=== PATIENT | female | born 1960 | race Caucasian/White ===

== ENCOUNTER 2016-12-08 05:08 | Inpatient (IN) | payer BC ==
[2016-11-11 15:01] VITALS: BMI 55.0
[2016-11-11 15:12] LABS: BASO % 0.4 %; BASO ABS # 0.03 K/uL (0-0.2); COMPLETE YES; IG% 0.2 %; LYMPH % 26.6 %; LYMPH ABS # 2.28 K/uL (1.2-3.4); MEAN CELL VOLUME 74.9 fL (80-100); MEAN CORPUSCULAR HEMOGLOBIN 24.9 pg (25-34); MEAN CORPUSCULAR HGB CONC 33.3 g/dl (32-36); MEAN PLATELET VOLUME 10.5 fL (7.4-10.4); MONO % 6.1 %; NEUT % 64.7 %; PLATELET COUNT 234 K/uL (130-400); RED BLOOD COUNT 5.34 M/uL (4.2-5.4); WHITE BLOOD COUNT 8.57 K/uL (4.8-10.8)
[2016-11-11 15:18] LABS: URINE APPEARANCE CLEAR (CLEAR); URINE BILIRUBIN NEG (NEG); URINE COLOR YELLOW; URINE EPITHELIAL CELL AUTO >30 /lpf (0-5); URINE NITRITE NEG (NEG); URINE SPECIFIC GRAVITY 1.015 (1.000-1.030); UROBILINOGEN NEG (NEG)
--- NOTE | 2016-11-11 15:20 | PAT Medication Instructions ---
Service Date Nov 11, 2016. Current Home Medication List Cholecalciferol (Vitamin D), 1,000 INTER.UNIT PO QAM Multiple Vitamins W/ Minerals (Hair/Skin/Nails), 1 TAB PO QAM Multivitamin (Multivitamin), 1 TAB PO QAM Simvastatin (Zocor), 10 MG PO QPM Medication Instructions For Your Scheduled Surgery - Hold the following medications the morning of surgery: Cholecalciferol (Vitamin D), 1,000 INTER.UNIT PO QAM Multiple Vitamins W/ Minerals (Hair/Skin/Nails), 1 TAB PO QAM Multivitamin (Multivitamin), 1 TAB PO QAM - Take the following medications as scheduled the night before surgery: Simvastatin (Zocor), 10 MG PO QPM Nothing to eat or drink after midnight If you have any questions please call us at [phone] or [phone] or [phone]
[2016-11-11 15:25] LABS: MANUAL MICROSCOPIC REQUIRED? NO; REVIEW REQ? NO
[2016-11-11 15:30] LABS: BUN/CREATININE RATIO 17.9 (10-20); CALCIUM 9.1 mg/dl (8.5-10.1); CREATININE 0.84 mg/dl (0.60-1.20); POTASSIUM 4.3 mmol/L (3.5-5.1)
[2016-11-11 15:36] LABS: PROTHROMBIN TIME (PATIENT) 10.5 SECONDS (9.0-12.0)
[2016-11-12 06:27] LABS: ESTIMATED AVERAGE GLUCOSE 123 mg/dl; HA1C FLAG Normal (Normal)
[~2016-12-08] VITALS: Ht 154.9 cm; Wt 131.5 kg
[2016-12-08] VITALS (10 sets, daily range): BP systolic 97–136; BP diastolic 62–84; PULSE 60–78; TEMP 36.8–37.3; O2SAT 93–100; Ht 154.9 cm; Wt 131.5 kg
[~2016-12-08 05:08] MED LIST: CHOL100010 PO; MULT-506 PO; MULT-580 PO; SIMV10TA2 PO
[2016-12-08] MEDS ORDERED: GABAPENTIN 300 MG CAP PO SCH (06:00)
[2016-12-08] MEDS ORDERED: METOCLOPRAMIDE HCL 10 MG TAB PO SCH (06:00)
[2016-12-08] MEDS ORDERED: ACETAMINOPHEN 500 MG TAB PO SCH (06:00)
[2016-12-08] MEDS ORDERED: LACTATED RINGER'S 1000ML IV SCH ×2 (06:00)
[2016-12-08] MEDS ORDERED: OXYCODONE HCL 10 MG TABCR (OXYCONTIN) PO SCH (06:00)
[2016-12-08] MEDS ORDERED: CeleBREX 200 MG CAP PO SCH (06:00)
[2016-12-08] MEDS ORDERED: LACTATED RINGER'S 500 ML IV SCH (06:00)
[2016-12-08] MEDS ORDERED: FAMOTIDINE 20 MG TAB PO SCH (06:00)
[2016-12-08] MEDS ORDERED: ROPIVACAINE 5MG/ML 30 ML 150 MG, BUPIVACAINE/EPINEPHR 0.5% MPF 30 ML, KETOROLAC TROMETH... INFIL SCH ×7 (06:00)
[2016-12-08] MEDS ORDERED: CEFAZOLIN 3000 MG/65 ML D5W 65 ML IV SCH (06:00)
[2016-12-08] MEDS ORDERED: DEXAMETHASONE 4 MG TAB PO SCH (06:00)
[2016-12-08] MEDS ORDERED: BUPIVACAINE 0.5 % 5 MG/1 ML PF 10ML VIAL ONE (06:27)
[2016-12-08] MEDS ORDERED: BUPIVACAINE/EPINEPHRINE 0.25% 1:200,000 30 ML VIAL ONE (06:27)
[2016-12-08] MEDS: TRANEXAMIC ACID INJ 1,000 MG in SODIUM CHLORIDE 0.9% 100ML 100 ML IV SCH ×2 (06:30→07:05)
[2016-12-08] MEDS ORDERED: POVIDONE-IODINE OP SOLN 30 ML BTL ONE (06:49)
[2016-12-08] MEDS ORDERED: BACITRACIN 50000 UNIT VIAL ONE (06:49)
[2016-12-08] MEDS ORDERED: ORTHO JOINT ANESTHETIC ONE (06:49)
[2016-12-08] MEDS ORDERED: MIDAZOLAM HCL 1 MG/ML 2ML VIAL ONE (06:54)
--- NOTE | 2016-12-08 07:01 | History and Physical ---
History & Physical Date of Service Dec 08, 2016. History & Physical History & Physical PROCEDURE: Right knee replacement. HISTORY OF PRESENT ILLNESS: The patient is a pleasant 55-year-old female who presents for preoperative evaluation prior to her Right knee replacement. She states she has been having pain in this knee for many years now, which has gradually worsened. It has now gotten to the point it is affecting her daily activities including walking, standing and going up and down steps. She takes oral anti-inflammatories as well as extra strength Tylenol with no relief. She has tried previous injections as well without any significant relief. She has had previous knee arthroscopy dating back I think 3-4 years ago. At this point in time has failed conservative measures and would like to proceed with a right knee replacement.she had her left knee replaced in 2016 and is doing well. PAST MEDICAL HISTORY: 1. High cholesterol. 2. Sleep apnea. 3. GERD. 4. Obesity. ALLERGIES: No known drug allergies. CURRENT MEDICATIONS: 1. Simvastatin 10 mg daily. 2. Diclofenac 75 mg b.i.d. 3. Wellbutrin 100 mg daily. PAST SURGICAL HISTORY: 1. Previous knee arthroscopies on both knees. 2. Bilateral carpal tunnel release. 3. Left Total Knee Replacement FAMILY HISTORY: Noncontributory. SOCIAL HISTORY: The patient quit smoking in 1981. Denies any alcohol consumption. REVIEW OF SYSTEMS: Otherwise negative. Please see HPI for pertinent positives. PHYSICAL EXAMINATION: GENERAL: Lizabeth 65-year-old female in no acute distress, alert and oriented x3. VITAL SIGNS: She is 5 feet 1, weighs 285 pounds. HEAD, EYES, EARS, NOSE, AND THROAT: Normocephalic, atraumatic. CARDIAC: Regular rate and rhythm. Resting pulse 70 beats per minute. LUNGS: Clear to auscultation without rales or wheeze bilaterally. ABDOMEN: Soft, nontender. Bowel sounds present. Obesity. EXTREMITIES: Examination of her Right lower extremity, she is neurovascularly intact. Calves are soft and nontender. DP pulse +2. Demonstrates good quad tone. Straight leg raise without lag. There is no erythema or warmth. Mild effusion. Demonstrates positive crepitation with motion. Full range of motion is 0/5/115. Knee is ligamentously stable with valgus and varus stress. X-RAYS: X-rays Right knee show findings consistent with degenerative joint disease including joint space narrowing, subchondral sclerosis, peripheral osteophytes noted. She has complete loss of the medial compartment with varus alignment, has osteophytes noted medial compartment as well as patellofemoral joint. IMPRESSION: 1. Right knee degenerative joint disease. 2. Morbid obesity. 3. High cholesterol. 4. Sleep apnea. 5. Gastroesophageal reflux disease. PLAN: Further care discussed with patient. At this point in time, we will proceed with Right knee replacement after medical clearance obtained, placed on aspirin 81 mg p.o. b.i.d. for a month postop. Otherwise, has no other questions or concerns.
--- NOTE | 2016-12-08 07:13 | History & Physical Bridge Note ---
H&P Re-Evaluation Bridge Note: I have examined the patient, reviewed the History & Physical and in the interval since the performance of the History & Physical I have noted the following changes of clinical significance: No changes noted
[2016-12-08] MEDS ORDERED: FLUMAZENIL 0.1 MG/1 ML 10 ML VIAL IV PRN (07:15)
[2016-12-08] MEDS ORDERED: NALOXONE HCL 0.4 MG/1 ML VIAL/CARP IV PRN (07:15)
[2016-12-08] MEDS ORDERED: EpHEDrine SULFATE INJ 50 MG/ML AMP IV PRN (07:15)
[2016-12-08] MEDS ORDERED: MEPERIDINE HCL 25 MG/ML CARP IV PRN (07:15)
[2016-12-08] MEDS ORDERED: ATROPINE SULFATE 0.1 MG/ML 5ML SYR IV PRN (07:15)
[2016-12-08] MEDS ORDERED: PHENYLEPHRINE 100MCG/ML 5ML SYR IV PRN (07:15)
[2016-12-08] MEDS ORDERED: ONDANSETRON INJ 2 MG/ML 2 ML VIAL IV PRN ×2 (07:15→09:15)
[2016-12-08] MEDS ORDERED: FENTANYL CITRATE INJ 50 MCG/1 ML 2 ML VIAL IV PRN (07:15)
[2016-12-08] MEDS ORDERED: LABETALOL HCL IV 5 MG/ML 20ML IV PRN (07:15)
[2016-12-08] MEDS ORDERED: KETAMINE HCL INJ 50 MG/ML 10 ML VIAL ONE (07:25)
[2016-12-08] MEDS ORDERED: PROPOFOL IV EMULSION 10 MG/ML 20 ML VIAL IV ONE (07:25)
[2016-12-08] MEDS ORDERED: DiphenhydrAMINE HCL 50 MG/ML VIAL ONE (07:51)
[2016-12-08] MEDS ORDERED: LIDOCAINE HCL 2% 2 ML VIAL (20MG/ML) ONE (07:51)
--- NOTE | 2016-12-08 08:26 | [facility] Post Operative Brief Note ---
Immediate Operative Summary Operative Date Dec 08, 2016. Pre-Operative Diagnosis Right knee degenerative joint disease. Post-Operative Diagnosis Right knee degenerative joint disease. Procedure(s) Performed Right Total Knee Arthroplasty Surgeon Dr. Lan Mayorga Custom [employer] Mill Operator Surgeon(s) Josemanuel Lemus PA-C Estimated Blood Loss 10cc Findings severe djd rt knee Specimens Specimen A. Right knee bone and tissue Complication(s) None Disposition Recovery Room / PACU
--- NOTE | 2016-12-08 08:33 | OPERATIVE REPORT ---
DATE OF OPERATION: 12/08/2016 PREOPERATIVE DIAGNOSIS: Severe end-stage degenerative joint disease, right knee. POSTOPERATIVE DIAGNOSIS: Severe end-stage degenerative joint disease, right knee. PROCEDURE: Right total knee arthroplasty utilizing Journey II nonblock total knee arthroplasty size 4 femur, 3 tibia, 9 poly, 32 oval patella. SURGEON: Dr. Mayorga. ESTIMATED BLOOD LOSS: 10 mL. TOURNIQUET TIME: 45 minutes. COMPLICATIONS: None. HISTORY OF PRESENT ILLNESS: The patient is a 56-year-old female with complaints of severe endstage DJD attributable to her right knee. She has been nonresponsive to conservative therapy and presents today for right total knee arthroplasty. After failing attempts at injections, corticosteroid injections, viscosupplementations, anti-inflammatories, relative rest, activity modification plan is for total knee arthroplasty. OPERATION AND FINDINGS: PROCEDURE: The patient was properly prepped and draped in supine position for total knee arthroplasty after identifying the appropriate surgical site. An anterior midline incision was made through the subcutaneous tissues down to the region of the extensor mechanism. A medial parapatellar incision was subsequently made. Meticulous hemostasis was obtained and performed at all times. The patella having been subluxed lateralward, medial and lateral meniscal remnants were excised. The patellar cut was then initially made and was sized to the appropriate size. After subluxing the tibia forward the appropriate meniscal fragments having been removed the distal femur was then cut first utilizing a Sandoval \T\ Nephew block. The distal femoral cuts and chamfer cuts were all made under direct visualization and the proximal tibial osteotomy cut was also made utilizing Sandoval \T\ Nephew blocks and checked with an extramedullary guide. The appropriate trial components on the femur and tibia were placed. Appropriate trial spacers were used to check flexion and extension gaps. With flexion and extension gaps being equal, the components were then subsequently after thorough irrigation and debridement lavage components were then subsequently cemented in the following order: femur, tibia and patella. Exparel was used for intraoperative anesthesia, the medial parapatellar incision was closed utilizing #1 Vicryl, subQ was closed with 2-0 Vicryl, skin was closed with skin clips. A sterile compression dressing was placed. The patient was taken to recovery room in stable condition. Due to the complex nature of the procedure, the entire surgery was performed with the operational assistance of Josemanuel Lemus PA-C. The secretary administrative assistant, under direct supervision, was involved in the actual performance of all aspects of the surgical procedure including hemostasis, tissue retraction and incision, instrument management, patient positioning, and wound closure. I attest to the content of the Intraoperative Record and any orders documented therein. Any exceptions are noted below. JESSICA
[2016-12-08] MEDS ORDERED: SOD PHOSPHATE/SOD BIPHOSPHATE ENEMA 132 ML BTL PR PRN (09:15)
[2016-12-08] MEDS ORDERED: ALUMINUM/MAGNESIUM/SIMETH (MAALOX MAX) 30 ML UDC PO PRN (09:15)
[2016-12-08] MEDS ORDERED: BISACODYL 10 MG SUPP PR PRN (09:15)
[2016-12-08] MEDS ORDERED: MAGNESIUM HYDROXIDE SUSP 30 ML UDC PO PRN (09:15)
[2016-12-08] MEDS ORDERED: HYDROmorphone INJ 1 MG/ML SYR IV PRN (09:15)
[2016-12-08] MEDS ORDERED: ZOLPIDEM TARTRATE 5 MG TAB PO PRN (09:15)
--- NOTE | 2016-12-08 09:42 | DIAGNOSTIC IMAGING REPORT ---
RIGHT KNEE 1 OR 2 VIEWS ROUTINE CLINICAL HISTORY: AP/LATERAL IN PACU RIGHT KNEE Right postoperative evaluation COMPARISON: None. DISCUSSION: Placement of a total right knee prosthetic. Good contact between prosthetic and underlying bone. Expected soft tissue postoperative change IMPRESSION: Anatomic alignment status post total right knee replacement Electronically signed by: Josemanuel De La Torre M.D. 12/08/2016 9:41 AM Dictated Date/Time: 12/08/2016 9:40 AM
--- NOTE | 2016-12-08 10:27 | Anesthesiology Progress Note ---
Anesthesia Post Op Note Date & Time Dec 08, 2016 at 10:28 Vital Signs Pain Intensity: 0 Vital Signs Past 12 Hours Date Time Temp Pulse Resp B/P Pulse Ox O2 Delivery O2 Flow Rate FiO2 12/08/16 10:12 36.9 12/08/16 10:11 115/60 12/08/16 10:10 70 16 97 12/08/16 10:10 71 16 12/08/16 10:06 106/60 12/08/16 10:05 71 11 91 12/08/16 10:05 71 11 12/08/16 10:01 120/59 12/08/16 10:00 71 12 12/08/16 10:00 71 12 91 12/08/16 09:56 122/59 12/08/16 09:55 71 12 93 12/08/16 09:55 71 12 12/08/16 09:51 116/64 12/08/16 09:50 71 13 92 12/08/16 09:50 71 13 12/08/16 09:46 116/65 12/08/16 09:45 72 12 12/08/16 09:45 72 12 92 12/08/16 09:41 114/58 12/08/16 09:40 72 16 93 12/08/16 09:40 72 16 12/08/16 09:36 112/59 12/08/16 09:35 73 19 95 12/08/16 09:35 73 19 12/08/16 09:31 119/57 12/08/16 09:30 72 11 12/08/16 09:30 72 11 100 12/08/16 09:26 100/58 12/08/16 09:25 73 11 12/08/16 09:25 74 11 100 12/08/16 09:21 121/56 12/08/16 09:20 77 11 100 12/08/16 09:20 77 11 12/08/16 09:16 113/55 12/08/16 09:15 80 11 100 12/08/16 09:15 80 11 12/08/16 09:12 101/55 12/08/16 09:05 36.6 85 16 145/57 99 Mask 10 12/08/16 05:45 36.9 78 20 131/71 97 Room Air Notes Mental Status: alert / awake / arousable, participated in evaluation Pt Amnestic to Procedure: Yes Nausea / Vomiting: adequately controlled Pain: adequately controlled Airway Patency, RR, SpO2: stable & adequate BP & HR: stable & adequate Hydration State: stable & adequate Neuraxial Anesthesia: was administered, sensory block is resolving Anesthetic Complications: no major complications apparent
[2016-12-08] MEDS: D5W AND 1/2NSS + 20MEQ KCL 1,000 ML IV SCH ×2 (11:59→21:47)
[2016-12-08] MEDS: FERROUS GLUCONATE 324 MG TAB PO SCH ×2 (12:42→17:36)
[2016-12-08] MEDS: ACETAMINOPHEN 500 MG TAB PO SCH ×2 (14:07→21:48)
[2016-12-08] MEDS: CEFAZOLIN IV 2,000 MG in DEXTROSE 5% 50ML 50 ML IV SCH ×2 (16:22→23:33)
[2016-12-08] MEDS: TRAMADOL HCL 50 MG TAB PO PRN (19:01)
[2016-12-08] MEDS: SIMVASTATIN 10 MG TAB PO SCH (21:07)
[2016-12-08] MEDS: ASPIRIN 81 MG ECTAB PO SCH (21:07)
[2016-12-08] MEDS: DOCUSATE SODIUM 100 MG CAP PO SCH (21:07)
[2016-12-08] MEDS: SENNA 8.6 MG TAB PO SCH (21:08)
[2016-12-08] MEDS: KETOROLAC TROMETHAMINE 30 MG/ML VIAL IV. PRN (21:17)
[2016-12-09 03:13] VITALS: BP 105/64; PULSE 65; TEMP 37.3; O2SAT 96
[2016-12-09] MEDS: KETOROLAC TROMETHAMINE 30 MG/ML VIAL IV. PRN (05:09)
[2016-12-09] MEDS: ACETAMINOPHEN 500 MG TAB PO SCH ×3 (05:09→21:45)
[2016-12-09 06:44] LABS: HEMATOCRIT 35.2 % (37-47); MEAN CELL VOLUME 77.5 fL (80-100); MEAN CORPUSCULAR HEMOGLOBIN 24.9 pg (25-34); MEAN CORPUSCULAR HGB CONC 32.1 g/dl (32-36); MEAN PLATELET VOLUME 11.2 fL (7.4-10.4); PLATELET COUNT 194 K/uL (130-400); RED BLOOD COUNT 4.54 M/uL (4.2-5.4); WHITE BLOOD COUNT 16.87 K/uL (4.8-10.8)
[2016-12-09 06:54] LABS: PROTHROMBIN TIME (PATIENT) 10.8 SECONDS (9.0-12.0)
--- NOTE | 2016-12-09 07:15 | Orthopedic Progress Note ---
Orthopedic Progress Note Date of Service Dec 09, 2016. Subjective Post OP Day: 1 (s/p Right TKA) Reports: feeling well, pain controlled w PO medications, Denies: SOB, calf pain , chest pain, complaints, light headedness, nausea / vomiting Objective calves soft nontender, N/V intact, capillary refill less than 2 sec., dressing C /D/I, A&O x3, toes mobile Date Time Temp Pulse Resp B/P Pulse Ox O2 Delivery O2 Flow Rate FiO2 12/09/16 03:13 37.3 65 16 105/64 96 Room Air 12/08/16 23:35 Room Air 12/08/16 23:00 37.3 62 16 108/68 95 Room Air 12/08/16 20:54 37.1 60 16 123/63 93 Room Air 12/08/16 15:40 Room Air 12/08/16 15:39 36.8 78 16 97/70 95 Room Air 12/08/16 13:45 37.1 67 20 113/68 97 Nasal Cannula 2.0 12/08/16 12:48 66 16 109/65 98 Nasal Cannula 2.0 12/08/16 12:27 37.1 67 20 136/84 100 Nasal Cannula 3.0 12/08/16 11:45 37.2 71 20 113/67 97 Nasal Cannula 2.0 12/08/16 11:10 37.3 67 19 100/62 97 Nasal Cannula 2.0 12/08/16 10:45 Nasal Cannula 2.0 12/08/16 10:45 37.0 72 16 103/65 97 Nasal Cannula 2.0 12/08/16 10:45 Nasal Cannula 12/08/16 10:31 99/51 12/08/16 10:28 70 13 12/08/16 10:28 70 13 96 12/08/16 10:26 114/59 12/08/16 10:23 69 15 96 12/08/16 10:23 70 15 12/08/16 10:21 119/61 12/08/16 10:18 70 12 12/08/16 10:18 69 12 96 12/08/16 10:16 114/58 12/08/16 10:13 70 15 97 12/08/16 10:13 70 15 12/08/16 10:12 36.9 12/08/16 10:11 115/60 12/08/16 10:10 70 16 97 12/08/16 10:10 71 16 12/08/16 10:06 106/60 12/08/16 10:05 71 11 91 12/08/16 10:05 71 11 12/08/16 10:01 120/59 12/08/16 10:00 71 12 12/08/16 10:00 71 12 91 12/08/16 09:56 122/59 12/08/16 09:55 71 12 93 12/08/16 09:55 71 12 12/08/16 09:51 116/64 12/08/16 09:50 71 13 92 12/08/16 09:50 71 13 12/08/16 09:46 116/65 12/08/16 09:45 72 12 12/08/16 09:45 72 12 92 12/08/16 09:41 114/58 12/08/16 09:40 72 16 93 12/08/16 09:40 72 16 12/08/16 09:36 112/59 12/08/16 09:35 73 19 95 12/08/16 09:35 73 19 12/08/16 09:31 119/57 12/08/16 09:30 72 11 12/08/16 09:30 72 11 100 12/08/16 09:26 100/58 12/08/16 09:25 73 11 12/08/16 09:25 74 11 100 12/08/16 09:21 121/56 12/08/16 09:20 77 11 100 12/08/16 09:20 77 11 12/08/16 09:16 113/55 12/08/16 09:15 80 11 100 12/08/16 09:15 80 11 12/08/16 09:12 101/55 12/08/16 09:05 36.6 85 16 145/57 99 Mask 10 Laboratory Results 24 Hours: Test 12/09/16 06:00 Hematocrit 35.2 % Hemoglobin 11.3 g/dL Prothromb Time International Ratio 1.0 Prothrombin Time 10.8 SECONDS Assessment & Plan Assessment: POD #1 s/p Right TKA -PT/OT -dvt proph with LORRIE/SCD/ASA -plan for d/c home with HHPT when stable 1. High cholesterol. 2. Sleep apnea. 3. GERD. 4. Obesity. Discharge Planning Discharge Planning: home with home health DVT Prophylaxis: TEDs, SCDs, ASA Therapy: Physical Therapy
[2016-12-09 07:17] LABS: BUN/CREATININE RATIO 17.2 (10-20); CALCIUM 8.4 mg/dl (8.5-10.1); CREATININE 0.94 mg/dl (0.60-1.20); POTASSIUM 4.5 mmol/L (3.5-5.1)
--- NOTE | 2016-12-09 07:17 | Discharge Instructions ---
Discharge Instructions Date of Service Dec 09, 2016. Admission Reason for Admission: Right Knee Osteoarthritis Discharge Discharge Diagnosis / Problem: Right Total Knee Replacement Discharge Goals Goal(s): Decrease discomfort, Improve function, Increase independence Activity Recommendations Activity Limitations: as noted below Weightbearing Status: Right weightbearing (as tolerated) . Instructions / Follow-Up Instructions / Follow-Up ACTIVITY RECOMMENDATIONS: SELF CARE INSTRUCTIONS AFTER TOTAL KNEE REPLACEMENT A. You may need to continue a physical therapy program after discharge from the hospital. There are several options available to you. Your doctor will assist you in selecting the best one for you. 1. An out-patient facility 2 to 3 times a week for therapy or home therapy. 2. Continue working on all exercises taught to you in the hospital. Your goals should be to increase bending of your knee to 90 degrees and beyond and to fully straighten your knee. B. You may progress at your own pace from walking with a walker or crutches to a cane; then to no assistive devices. C. Make walking a part of your daily routine. Be up as much as comfortable with rest periods throughout the day. Rest with leg elevation is very important. Use the ice wrap frequently for the first 3-4 weeks. D. There are no restrictions on activities. You may ride in a car, shop, participate in soft metals hand engraver and all social activities. E. Wear the long elastic stockings (LORRIE hose) 20 hours a day for 2 weeks after surgery. They can be removed several times a day for laundering and for a bath. F. You may shower, no tub baths until cleared by your doctor. SPECIAL CARE INSTRUCTIONS: VERY IMPORTANT TO READ AND REVIEW A. There are a few signs you need to watch for after you are home. Call [facility] [place] if you notice any of the followin. Increased severe knee pain. Some pain is expected especially when you exercise. 2. Increased swelling in your leg or knee; pain or swelling of the calf muscle in either lower leg. 3. Any fluid drainage from the incision. 4. Shortness of breath or chest pain. B. Please call [facility] at if you have any concerns or questions about your operation or recovery. The doctor or his nurse will return your call promptly. C. You must take antibiotics before dental work, bladder, bowel or other surgery. Your doctor will provide you with a permanent care to carry describing this precaution. IMPORTANT: * REMEMBER TO TAKE ASPIRIN, 81 MG, TWICE DAILY FOR 4 WEEKS UNLESS OTHERWISE DIRECTED. THIS IS YOUR BLOOD THINNER. * HIGH RISK PATIENTS MAY BE PRESCRIBED A STRONGER BLOOD THINNER. THIS WILL BE PROVIDED AT DISCHARGE. * CALL IF INCREASED PAIN, REDNESS, DRAINAGE OR FEVER GREATER THAT 101. * WEAR LORRIE HOSE 20 HOURS PER DAY FOR 2 WEEKS. * Prevena- This is a large suction dressing covering your incision. This will help pull any excess drainage from the wound and allow your incision to heal properly. You may shower with this if you can keep the unit outside of the shower. If any bleeding or leakage is noted please call your doctor's office. This will remain on your incision for 5 days and then should be removed. This can be done yourself or by the home nursing staff if applicable. The entire unit is disposable once removed. Once removed, keep incision clean and dry. If redness or drainage is noted, please call your surgeon. If you develop any type of blistering, please call the office and we can have you remove the wound vac. FOLLOW UP VISIT: If appointment is not already scheduled: Please call [facility] [place] to make a follow-up appointment for 2 weeks after your surgery at . Current Hospital Diet Patient's current hospital diet: Regular Diet Discharge Diet Recommended Diet: Regular Diet Procedures Procedures Performed: Right Total Knee Arthroplasty Pending Studies Studies pending at discharge: no Laboratory Results Hemoglobin A1c Test 11/11/16 14:50 Range/Units Estimated Average Glucose 123 mg/dl Hemoglobin A1c 5.9 H 4.5-5.6 % Medical Emergencies . Who to Call and When: Medical Emergencies: If at any time you feel your situation is an emergency, please call 911 immediately. . Non-Emergent Contact Non-Emergency issues call your: Primary Care Provider, Surgeon . "Provider Documentation" section prepared by Josemanuel Lemsu. VTE Core Measure Inpt VTE Proph given/why not?: Other Anticoagulation (ASA 81mg po bid x 1 month ), TPool Alexandra, SCD's [place] Drug Monitoring Program Search Results: patient reviewed within database, no issues identified
--- NOTE | 2016-12-09 07:56 | Anesthesiology Progress Note ---
Anesthesia Post Op Note Date & Time Dec 09, 2016 at 07:53 Vital Signs Pain Intensity: 0.0 Vital Signs Past 12 Hours Date Time Temp Pulse Resp B/P Pulse Ox O2 Delivery O2 Flow Rate FiO2 12/09/16 03:13 37.3 65 16 105/64 96 Room Air 12/08/16 23:35 Room Air 12/08/16 23:00 37.3 62 16 108/68 95 Room Air 12/08/16 20:54 37.1 60 16 123/63 93 Room Air Notes Mental Status: alert / awake / arousable, participated in evaluation Pt Amnestic to Procedure: Yes Nausea / Vomiting: adequately controlled Pain: adequately controlled Airway Patency, RR, SpO2: stable & adequate BP & HR: stable & adequate Hydration State: stable & adequate Neuraxial Anesthesia: was administered, sensory block resolved Anesthetic Complications: no major complications apparent
[2016-12-09 08:06] VITALS: BP 118/73; PULSE 60; TEMP 36.5; O2SAT 96
[2016-12-09] MEDS: DOCUSATE SODIUM 100 MG CAP PO SCH ×2 (08:31→20:30)
[2016-12-09] MEDS: D5W AND 1/2NSS + 20MEQ KCL 1,000 ML IV SCH (08:32)
[2016-12-09] MEDS: PANTOprazole SOD 40 MG TAB PO SCH (08:32)
[2016-12-09] MEDS: CHOLECALCIFEROL 1000 INTER.UNIT TAB PO SCH (08:32)
[2016-12-09] MEDS: FERROUS GLUCONATE 324 MG TAB PO SCH ×3 (08:32→17:42)
[2016-12-09] MEDS: ASPIRIN 81 MG ECTAB PO SCH ×2 (08:32→20:30)
[2016-12-09] MEDS: MULTIVITAMIN TAB PO SCH (08:32)
[2016-12-09 09:19] VITALS: O2SAT 96
--- NOTE | 2016-12-09 10:27 | Anesthesiology Progress Note ---
Anesthesia Post Op Note Date & Time Dec 09, 2016 at 10:26 Vital Signs Vital Signs Past 12 Hours Date Time Temp Pulse Resp B/P Pulse Ox O2 Delivery O2 Flow Rate FiO2 12/09/16 09:19 96 Room Air 12/09/16 08:06 36.5 60 20 118/73 96 Room Air 12/09/16 03:13 37.3 65 16 105/64 96 Room Air 12/08/16 23:35 Room Air 12/08/16 23:00 37.3 62 16 108/68 95 Room Air Notes Mental Status: alert / awake / arousable, participated in evaluation Pt Amnestic to Procedure: Yes Nausea / Vomiting: adequately controlled Pain: adequately controlled Airway Patency, RR, SpO2: stable & adequate BP & HR: stable & adequate Hydration State: stable & adequate Neuraxial Anesthesia: sensory block resolved Anesthetic Complications: no major complications apparent
[2016-12-09 12:15] VITALS: BP 118/80; PULSE 60; TEMP 36.4; O2SAT 95
[2016-12-09 15:16] VITALS: BP 147/83; PULSE 69; TEMP 36.7; O2SAT 94
[2016-12-09] MEDS: TRAMADOL HCL 50 MG TAB PO PRN (17:42)
[2016-12-09] MEDS: CeleBREX 200 MG CAP PO SCH (20:29)
[2016-12-09] MEDS: SIMVASTATIN 10 MG TAB PO SCH (20:30)
[2016-12-09] MEDS: SENNA 8.6 MG TAB PO SCH (20:30)
[2016-12-09 22:54] VITALS: BP 121/74; PULSE 68; TEMP 37.4; O2SAT 97
[2016-12-10] MEDS: ACETAMINOPHEN 500 MG TAB PO SCH ×2 (05:27→13:50)
[2016-12-10] MEDS: TRAMADOL HCL 50 MG TAB PO PRN ×2 (05:28→13:10)
[2016-12-10 06:05] VITALS: BP 125/78; PULSE 65; TEMP 36.7; O2SAT 98
[2016-12-10] MEDS: CHOLECALCIFEROL 1000 INTER.UNIT TAB PO SCH (07:29)
[2016-12-10] MEDS: PANTOprazole SOD 40 MG TAB PO SCH (07:30)
[2016-12-10] MEDS: DOCUSATE SODIUM 100 MG CAP PO SCH (07:30)
[2016-12-10] MEDS: MULTIVITAMIN TAB PO SCH (07:30)
[2016-12-10] MEDS: ASPIRIN 81 MG ECTAB PO SCH (07:30)
[2016-12-10] MEDS: CeleBREX 200 MG CAP PO SCH (07:30)
[2016-12-10] MEDS: FERROUS GLUCONATE 324 MG TAB PO SCH ×2 (07:31→13:09)
--- NOTE | 2016-12-10 09:04 | Orthopedic Progress Note ---
Orthopedic Progress Note Date of Service Dec 10, 2016. Subjective Post OP Day: 2 Reports: feeling well Objective N/V intact, dressing C/D/I (Prevena in place), toes mobile Date Time Temp Pulse Resp B/P Pulse Ox O2 Delivery O2 Flow Rate FiO2 12/10/16 07:22 Room Air 12/10/16 06:05 36.7 65 16 125/78 98 Room Air 12/09/16 22:54 37.4 68 16 121/74 97 Room Air 12/09/16 19:20 Room Air 12/09/16 15:30 Room Air 12/09/16 15:16 36.7 69 16 147/83 94 Room Air 12/09/16 12:15 36.4 60 12 118/80 95 Room Air 12/09/16 09:19 96 Room Air Assessment & Plan Assessment: POD #2 s/p Right TKA -PT/OT -dvt proph with LORRIE/SCD/ASA -plan for d/c home with HHPT when stable 1. High cholesterol. 2. Sleep apnea. 3. GERD. 4. Obesity. Plan: 1. med management 2. DVT prophylaxis- ASA, TEDs, SCDs 3. PT/OT 4. D/C planning- home w/ HH Discharge Planning Discharge Planning: home with home health DVT Prophylaxis: TEDs, SCDs, ASA Therapy: Physical Therapy
[2016-12-10] MEDS ORDERED: CLB200 PO (09:08)
[2016-12-10] MEDS ORDERED: ACET-1138 PO (09:08)
[2016-12-10] MEDS ORDERED: ASPEC81 PO (09:08)
[2016-12-10] MEDS ORDERED: ULT50X PO (09:08)
[2016-12-10] MEDS ORDERED: ONDA8TAB12 PO (09:08)
[2016-12-10 13:14] VITALS: BP 125/78; PULSE 65; TEMP 36.7; O2SAT 98
--- NOTE | 2016-12-10 13:32 | Discharge Summary ---
Orthopedic Discharge Summary Admission Date/Reason Dec 08, 2016 at 09:11 Right Knee Osteoarthritis. Discharge Date/Disposition Dec 10, 2016 Home with services Diagnosis Principal Diagnosis: s/p Right TKA Procedure(s) Performed Right Total Knee Replacement Consultations NONE Medication Reconciliation New Medications: Ondansetron Hcl (Zofran) 8 Mg Tab 8 MG PO Q8 PRN for Nausea or Vomiting, #20 TAB Acetaminophen (Tylenol Extra Strength) 500 Mg Tab 1000 MG PO Q8, #126 TAB Aspirin (Aspirin EC Low Dose) 81 Mg Ectab 81 MG PO BID for 30 Days Celecoxib (Celebrex) 200 Mg Cap 200 MG PO BID, #60 CAP Tramadol HCl (Tramadol HCl) 50 Mg Tab 50-100 MG PO Q4-6 PRN for Pain, #60 TAB Continued Medications: Cholecalciferol (Vitamin D) 1,000 Inter.unit Tab 1000 INTER.UNIT PO QAM, TAB Multiple Vitamins W/ Minerals (Hair/Skin/Nails) 1 Tab Tab 1 TAB PO QAM Multivitamin (Multivitamin) Tab 1 TAB PO QAM, TAB Simvastatin (Zocor) 10 Mg Tab 10 MG PO QPM, TAB Admission Physical Exam As per Admitting History & Physical. Hospital Course Patient was a same day admission after undergoing a successful right TKA.she tolerated the procedure well. Post-operatively, her activity was progressed and well tolerated. Please refer to daily progress notes and PT notes for complete details. After exam on 12/10/16, patient felt to be stable for discharge home with Home PT. Patient will f/u in the office in 2 weeks for further evaluation including x-rays and incision check, sooner if having any issues or concerns. Below are pertinent labs/studies during their hospital stay: Last Vital Signs Documentation Date Time Temp Pulse Resp B/P Pulse Ox O2 Delivery O2 Flow Rate FiO2 12/10/16 13:14 36.7 65 16 98 Room Air Nasal Cannula 12/10/16 06:05 125/78 12/08/16 13:45 2.0 Last Resulted CBC 12/09/16 06:00 Last Resulted BMP 12/09/16 06:00 Discharge Instructions ACTIVITY RECOMMENDATIONS: SELF CARE INSTRUCTIONS AFTER TOTAL KNEE REPLACEMENT A. You may need to continue a physical therapy program after discharge from the hospital. There are several options available to you. Your doctor will assist you in selecting the best one for you. 1. An out-patient facility 2 to 3 times a week for therapy or home therapy. 2. Continue working on all exercises taught to you in the hospital. Your goals should be to increase bending of your knee to 90 degrees and beyond and to fully straighten your knee. B. You may progress at your own pace from walking with a walker or crutches to a cane; then to no assistive devices. C. Make walking a part of your daily routine. Be up as much as comfortable with rest periods throughout the day. Rest with leg elevation is very important. Use the ice wrap frequently for the first 3-4 weeks. D. There are no restrictions on activities. You may ride in a car, shop, participate in men's custom hair piece consultant and all social activities. E. Wear the long elastic stockings (LORRIE hose) 20 hours a day for 2 weeks after surgery. They can be removed several times a day for laundering and for a bath. F. You may shower, no tub baths until cleared by your doctor. SPECIAL CARE INSTRUCTIONS: VERY IMPORTANT TO READ AND REVIEW A. There are a few signs you need to watch for after you are home. Call [facility] if you notice any of the followin. Increased severe knee pain. Some pain is expected especially when you exercise. 2. Increased swelling in your leg or knee; pain or swelling of the calf muscle in either lower leg. 3. Any fluid drainage from the incision. 4. Shortness of breath or chest pain. B. Please call [facility] at if you have any concerns or questions about your operation or recovery. The doctor or his nurse will return your call promptly. C. You must take antibiotics before dental work, bladder, bowel or other surgery. Your doctor will provide you with a permanent care to carry describing this precaution. IMPORTANT: * REMEMBER TO TAKE ASPIRIN, 81 MG, TWICE DAILY FOR 4 WEEKS UNLESS OTHERWISE DIRECTED. THIS IS YOUR BLOOD THINNER. * HIGH RISK PATIENTS MAY BE PRESCRIBED A STRONGER BLOOD THINNER. THIS WILL BE PROVIDED AT DISCHARGE. * CALL IF INCREASED PAIN, REDNESS, DRAINAGE OR FEVER GREATER THAT 101. * WEAR LORRIE HOSE 20 HOURS PER DAY FOR 2 WEEKS. * Prevena- This is a large suction dressing covering your incision. This will help pull any excess drainage from the wound and allow your incision to heal properly. You may shower with this if you can keep the unit outside of the shower. If any bleeding or leakage is noted please call your doctor's office. This will remain on your incision for 7 days and then should be removed. This can be done yourself or by the home nursing staff if applicable. The entire unit is disposable once removed. Once removed, keep incision clean and dry. If redness or drainage is noted, please call your surgeon. FOLLOW UP VISIT: If appointment is not already scheduled: Please call [facility] to make a follow-up appointment for 2 weeks after your surgery at .
== END 2016-12-10 14:04 | disposition home health service (06) | DRG 470 ==
LOC: ENRESERVDT → ENRESERVTM → C.ACU 05:08 → C.3E 09:11
PROVIDERS: ADMIT Orthopaedic Surgery; ATTEND Orthopaedic Surgery
PROC: 0SRC0J9 Replacement of Right Knee Joint with Synthetic Substitute, Cemented, Open Approach (ICD-10-PCS; principal; 2016-12-08 07:15)
DX: M17.11 Unilateral primary osteoarthritis, right knee (principal); Z68.43 Body mass index [BMI] 50.0-59.9, adult; E78.00 Pure hypercholesterolemia, unspecified; G47.30 Sleep apnea, unspecified; E66.01 Morbid (severe) obesity due to excess calories; Z87.891 Personal history of nicotine dependence; Z96.652 Presence of left artificial knee joint; Z79.1 Long term (current) use of non-steroidal anti-inflammatories (NSAID); Z79.899 Other long term (current) drug therapy